=== PATIENT | female | born 1970 | race American Indian/Alaskan Native ===

== ENCOUNTER 2021-02-19 17:16 | Emergency (ER) | payer MEDICARE, MEDICAID, SELFPAY ==
[2021-02-19 17:35] VITALS: BP 119/70; PULSE 86; RESP 18; TEMP 36.6; O2SAT 97
[2021-02-19 20:32] LABS: Bacteria Urine Occasional (0-1); RBC Urine 0-1/HPF (0-5/HPF); Squamous Epithelial Cell Urine 0-1 /HPF (0-5/HPF); WBC Urine 10-30/HPF (0-5/HPF)
[2021-02-19 20:33] LABS: Culture Indicated Urine Specimen Cultured
--- NOTE | 2021-02-19 20:52 | ED.GENADULT ---
HPI - General Adult General Chief complaint: Fever Stated complaint: bladder infection Time Seen by Provider: 02/19/21 20:26 Source: patient Mode of arrival: Ambulatory Limitations: no limitations History of Present Illness HPI narrative: Patient is a 50-year-old female who is here for evaluation of which he thinks is a bladder infection. She has had dysuria and nausea and fevers and urinary frequency. States she has had a bladder infection in the past but that was many years ago. She also states that she has had a kidney infection in the past and also states she has had a infection in her pancreas in the past. She has not tried anything for her symptoms prior to arrival. Some nausea but no vomiting. Related Data Previous Rx's Medication Instructions Recorded cephalexin 500 mg PO BID 7 Days #14 cap 02/19/21 phenazopyridine [Pyridium] 100 mg PO TID PRN #6 tab 02/19/21 Allergies Allergy/AdvReac Type Severity Reaction Status Date / Time diphenhydramine Allergy Severe Anaphylaxis Verified 02/19/21 21:00 Review of Systems Constitutional Constitutional: Reports fatigue and Reports fever(s) Cardiovascular Cardiovascular: Reports system reviewed and no additional complaints, except as documented Respiratory Respiratory: Reports system reviewed and no additional complaints, except as documented Gastrointestinal Gastrointestinal: Reports abdominal pain (Lower abdomen over bladder) and Reports nausea Genitourinary Genitourinary: Reports dysuria, Reports urinary hesitancy and Reports urinary urgency Genitourinary: Reports dysuria, Reports urinary hesitancy and Reports urinary urgency Musculoskeletal Musculoskeletal: Denies back pain Integumentary/Breasts Skin/Breast: Reports system reviewed and no additional complaints, except as documented Neurologic Neurologic: Reports system reviewed and no additional complaints, except as documented Psychiatric Psychiatric: Reports system reviewed and no additional complaints, except as documented Endocrine Endocrine: Reports fatigue Patient History Medical History Healthy adolescent Social History lives independently: Yes Exam Initial Vital Signs Initial Vital Signs: Vital Signs Temperature 97.8 F 02/19/21 17:35 Pulse Rate 86 02/19/21 17:35 Respiratory Rate 18 02/19/21 17:35 Blood Pressure 119/70 02/19/21 17:35 Pulse Oximetry 97 06/14/21 17:35 Const General: cooperative and comfortable Limitations: mental status not altered HENID Head: normal to inspection and normocephalic Resp Effort & Inspection: normal respiratory effort Cardio Rate: regular rate GI Palpation: soft Back/Spine/Pelvis Back: No CVA tenderness Skin General: no rashes or lesions noted Neuro General: patient alert and patient awake Extrem General: normal to inspection Psych Appearance: grossly normal and well kempt Course Orders Ordered: ED Orders 02/19/21 20:16 Urine Culture Stat Urine Microscopic Stat Discontinued Medications Cephalexin HCl (Cephalexin 250 Mg Capsule) 500 mg PO NOW ONE Stop: 02/19/21 20:54 Last Admin: 02/19/21 20:57 Dose: 500 mg Documented by: [email or web address] Phenazopyridine HCl (Phenazopyridine 100 Mg Tablet) 100 mg PO NOW ONE Stop: 02/19/21 20:54 Last Admin: 02/19/21 20:57 Dose: 100 mg Documented by: ABE Vital Signs Vital signs: Vital Signs - 8 hr 02/19/21 21:05 Pulse Rate 80 Respiratory Rate 15 Blood Pressure 121/56 L Pulse Oximetry 99 Medical Decision Making Lab Data Lab results reviewed: Yes I reviewed the patient's lab results. Labs: Lab Results 02/19/21 Range/Units 20:16 Urine RBC 0-1/hpf (0-5/HPF) Urine WBC 10-30/hpf H (0-5/HPF) Ur Squamous Epith Cells 0-1 /hpf (0-5/HPF) Urine Bacteria Occasional (0-1) (None) Ur Culture Indicated? Specimen cultured Urine Dip Bedside Urine Glucose Negative Bedside Urine Bilirubin - Negative Bedside Urine Ketone - Negative Urine Specific [place] 1.010 Bedside Urine Occult Blood ++ Bedside Urine pH 6 Bedside Urine Protein - Negative Bedside Urine Urobilinogen - Negative Bedside Urine Nitrite - Negative Bedside Urine Leukocytes + 70 Esterase Point of care testing: Urine Dip Bedside Urine Glucose Negative Bedside Urine Bilirubin - Negative Bedside Urine Ketone - Negative Urine Specific [place] 1.010 Bedside Urine Occult Blood ++ Bedside Urine pH 6 Bedside Urine Protein - Negative Bedside Urine Urobilinogen - Negative Bedside Urine Nitrite - Negative Bedside Urine Leukocytes + 70 Esterase MDM Narrative Medical decision making narrative: History and physical urinalysis today is consistent with a urinary tract infection. I have low suspicion for pyelonephritis given her physical exam. Urine culture was pending at the time of her discharge and we will contact her for need to change any antibiotics however feel that we should start antibiotics today. She was given a 1st dose here in the emergency department and prescription was sent to the pharmacy of her choice for the remainder. Will also give peridium to control symptoms. She was given return precautions and follow-up instructions. She expressed understanding and agreement. Discharge Plan Departure Patient Disposition: Home Clinical Impression: Urinary tract infection Instructions: DI for Urinary Tract Infection (UTI) Activity Restrictions/Additional Instructions: A prescription for antibiotics is electronically transmitted to [facility]. Please take them as directed starting tomorrow. You can take Tylenol/ibuprofen for discomfort/fevers. Return to the emergency department for any new or worsening symptoms Prescriptions: New phenazopyridine [Pyridium] 100 mg tablet 100 mg PO TID PRN (Reason: pain) Qty: 6 RF: 0 cephalexin 500 mg capsule 500 mg PO BID 7 Days Qty: 14 RF: 0
[2021-02-19] MEDS: cephALEXin 250 MG CAPSULE 500 MG PO (20:57)
[2021-02-19] MEDS: PHENAZOPYRIDINE 100 MG TABLET PO (20:57)
[2021-02-19 21:05] VITALS: BP 121/56; PULSE 80; RESP 15; O2SAT 99
== END 2021-02-19 21:06 | disposition home or self-care (01) ==
PROVIDERS: Emergency Provider Emergency Medicine
DX: N39.0 Urinary tract infection, site not specified (principal); R11.0 Nausea; R50.9 Fever, unspecified
CPT/HCPCS: 81003; 81015; 87086; 99283

== ENCOUNTER 2021-02-23 10:05 | Emergency (ER) | payer MEDICARE, MEDICAID, SELFPAY ==
[2021-02-23] VITALS (9 sets, daily range): BP systolic 103–142; BP diastolic 58–85; PULSE 70–97; RESP 14–16; TEMP 36.8–38.3; O2SAT 96–100
--- NOTE | 2021-02-23 11:58 | DI.RAD.S_ITS ---
PROCEDURE: XR CHEST 1V INDICATIONS: fever TECHNIQUE: One view of the chest was acquired. COMPARISON: None. FINDINGS: Surgical changes and devices: None. Lungs and pleura: Scattered subsegmental atelectasis and/or scarring. No focal consolidation. No pleural effusions or pneumothorax. Mediastinum: Mediastinal contours appear normal. Heart size is normal. Bones and chest wall: No suspicious bony lesions. Overlying soft tissues appear unremarkable. IMPRESSION: Diffuse mild patchy opacity presumably scarring/atelectasis versus low-grade aspiration. It would be difficult to exclude early atypical/viral pneumonia in this setting. If there is persistent clinical diagnostic uncertainty, continued surveillance with short interval radiographic followup after treatment is recommended. Dictated by: Tyler Dunn M.D. on 02/23/2021 at 12:36 Approved by: Tyler Dunn M.D. on 02/23/2021 at 12:37
--- NOTE | 2021-02-23 11:58 | ED_ITS ---
HPI - Allergic Reaction General Chief complaint: Allergic Reaction Stated complaint: bladder-kidney infection/swelling eyes Time Seen by Provider: 02/23/21 11:37 Source: patient Mode of arrival: Ambulatory Limitations: no limitations History of Present Illness HPI narrative: 50-year-old woman with no significant medical history presents for the 2nd time. she was seen initially on February 19 with what she thought was a urinary tract infection with dysuria nausea fevers and frequency. Urine had some white blood cells and leukocyte esterase and he was diagnosed with a urinary tract infection with a low suspicion for pyelonephritis she was given cephalexin and peridium. She notes that the Peridium did help with the burning and urgency symptoms however the dysuria, vulvodynia, fevers, rigors have all worsened. urinalysis from February 19 has subsequently grown out nothing on culture. She has noted fevers to 103? that return as soon as her antipyretics wear off. She is complaining of significant myalgias, low-grade headache yesterday that actually has resolved today. She is now having increasing epig astric and left upper quadrant pain and feels like shit period. she describes no significant vaginal discharge, no new sexual partners, no vomiting but a moderate amount of nausea. This morning she woke with significant swelling around her eyes that has resolves after using some ice. No const ipation or diarrhea. She notes that the epigastric and left upper quadrant pain is a bit worse with deep breathing but does not specifically complain of dyspnea or cough. Related Data Previous Rx's Medication Instructions Recorded cephalexin 500 mg PO BID 7 Days #14 cap 02/19/21 phenazopyridine [Pyridium] 100 mg PO TID PRN #6 tab 02/19/21 ondansetron 4 mg PO Q8H PRN #14 tab 02/23/21 oxycodone-acetaminophen 1 tab PO Q6H PRN #10 tab 02/23/21 valacyclovir 1,000 mg PO BID #40 tab 02/23/21 Allergies Allergy/AdvReac Type Severity Reaction Status Date / Time diphenhydramine Allergy Severe Anaphylaxis Verified 02/23/21 10:24 Review of Systems Review of Systems Narrative: Remainder of complete review of systems is otherwise unremarkable except for that included in the HPI. Patient History Medical History (Updated 02/23/21 @ 13:45 by Vy Weston MD) Herpes Social History lives independently: Yes Smoking Status: Current every day smoker Smoking Status: Current every day smoker tobacco type: cigarettes alcohol intake frequency: 0-2 drinks per day Substance Use Type: marijuana Exam Narrative Exam Narrative: General: mild distress. Able to give a complete and coherent history. Well-nourished well-developed HEENT: Moist mucous membranes, normal sclera with reactive pupils, Neck: No JVD, supple Respiratory: Lungs are clear to auscultation, no wheezing no rales no rhonchi. Full and symmetrical air movement Cardiac: Regular rate and rhythm no murmurs no bruits Abdomen: Soft, nontender, good bowel tones, no flank pain Skin: Warm to the touch,and dry, no rashes Neurologic: Grossly neurologically intact with no obvious asymmetries or abnormalities Extremities: No trauma, well perfused genitalia: Significant edema to the inner and outer labia more on the left than the right with multiple partially healed fascicular lesions consistent with HSV. there is a lesion close to the urethral orifice that may explain the severity of the urinary symptoms that she is experiencing Psych: Cooperative, appropriate insight and affect Initial Vital Signs Initial Vital Signs: Vital Signs Temperature 98.2 F 02/23/21 10:20 Pulse Rate 90 02/23/21 10:20 Respiratory Rate 14 02/23/21 10:20 Blood Pressure 142/85 H 02/23/21 10:20 Pulse Oximetry 98 02/23/21 10:20 Course Orders Ordered: ED Orders 02/23/21 11:58 XR chest 1V Stat 02/23/21 12:10 Complete Blood Count AUTO DIFF Stat Comprehensive Metabolic Panel Stat Lactate (Lactic Acid) Stat Lipase Stat 02/23/21 12:35 Blood Culture Stat Discontinued Medications Acetaminophen (Acetaminophen 325 Mg Tablet) 975 mg PO NOW ONE Stop: 02/23/21 13:14 Last Admin: 02/23/21 13:18 Dose: 975 mg Documented by: Sodium Chloride (Normal Saline 0.9%) 1,000 mls @ 1,000 mls/hr IV BOLUS ONE Stop: 02/23/21 12:56 Last Admin: 02/23/21 12:18 Dose: 1,000 mls/hr Documented by: ROSA Ketorolac Tromethamine (Ketorolac 30 Mg/Ml Vial) 15 mg IV NOW ONE Stop: 02/23/21 11:58 Last Admin: 02/23/21 12:18 Dose: 15 mg Documented by: ROSA Ondansetron HCl (Ondansetron 4 Mg/2 Ml Inj) 4 mg IV NOW ONE Stop: 02/23/21 11:58 Last Admin: 02/23/21 12:19 Dose: 4 mg Documented by: ROSA Vital Signs Vital signs: Vital Signs - 8 hr 02/23/21 10:20 02/23/21 12:24 02/23/21 12:30 Temperature 98.2 F Pulse Rate 90 92 H 94 H Respiratory Rate 14 Blood Pressure 142/85 H 121/72 Pulse Oximetry 98 100 98 02/23/21 13:00 02/23/21 13:07 02/23/21 13:18 Temperature 101.0 F H 101.0 F H Pulse Rate 94 H 95 H Respiratory Rate Blood Pressure 103/58 L Pulse Oximetry 97 99 MDM - Allergic Reaction Medical Records Attestation: I reviewed the patient's medical records. Lab Data Attestation: I reviewed the patient's lab results. Result diagrams: 02/23/21 12:10 02/23/21 12:10 Labs: Lab Results 02/23/21 02/23/21 02/23/21 Range/Units 12:10 12:10 12:10 WBC 10.9 (4.5-11.0) X10^3/uL RBC 4.44 (4.0-5.2) X10^6/uL Hgb 13.2 (12.0-16.0) g/dL Hct 39.4 (36-46) % MCV 88.8 (80-100) fL MCH 29.8 (26-34) PG MCHC 33.6 (30-36) % RDW 13.9 (11.6-14.8) % Plt Count 217 (150-400) X10^3/uL Neut % (Auto) 72.4 (50-75) % Lymph % (Auto) 16.6 L (25-40) % [place] % (Auto) 8.8 (3-14) % Eos % (Auto) 1.8 L (2-4) % Baso % (Auto) 0.4 (0-2) % Neut # (Auto) 7900 H (3741-7831) /uL Lymph # (Auto) 1800 (9080-4706) /uL [place] # (Auto) 1000 H (0-900) /uL Eos # (Auto) 200 (0-450) /uL Baso # (Auto) 0 (0-100) /uL Sodium 139 (137-145) mmol/L Potassium 3.8 (3.4-5.1) mmol/L Chloride 104 (98-107) mmol/L Carbon Dioxide 28 (22-32) mmol/L BUN 10 (7-17) mg/dL Creatinine 0.53 (0.52-1.04) mg/dL Estimated GFR > 60.0 (>60) mL/min BUN/Creatinine Ratio 18.9 (6-22) Glucose 108 H (70-100) mg/dL Lactate 1.0 (0.7-2.1) mmol/L Calcium 9.1 (8.4-10.2) mg/dL Total Bilirubin 0.4 (0.2-1.3) mg/dL AST 34 (14-36) IU/L ALT 37 H (<35) IU/L Alkaline Phosphatase 174 H (38-126) U/L Total Protein 7.7 (6.3-8.2) g/dL Albumin 4.0 (3.5-5.0) g/dL Globulin 3.7 (1.7-4.1) g/dL Albumin/Globulin Ratio 1.1 (1.0-2.8) Lipase 48 (23-300) U/L Urine Dip Bedside Urine Glucose Negative Bedside Urine Bilirubin - Negative Bedside Urine Ketone - Negative Urine Specific [place] 1.010 Bedside Urine Occult Blood - Negative Bedside Urine pH 6.0 Bedside Urine Protein - Negative Bedside Urine Urobilinogen - Negative Bedside Urine Nitrite - Negative Bedside Urine Leukocytes - Negative Esterase MDM Narrative Medical decision making narrative: 50-year-old woman seen in [place] with uri nary symptoms treated is a UTI but significantly worse with high-grade fevers and increasing perineal pain as well as myalgias, fatigue in general malaise. She notes that her partner of 10 years does have genital herpes but they are always careful to use condoms and she herself has never had a herpes outbreak. Because symptoms continue and she is having fevers with the rigors additional workup is completed. No evidence of severe bacterial infection or sepsis. At this point I suspect that this is a primary herpes outbreak with significant viremia. All of the findings are reviewed with patient she started on valacyclovir. Asked her to follow-up with her primary care physician and at th is point she is safe for home discharge Discharge Plan Departure Patient Disposition: Home Clinical Impression: Herpes Instructions: DI for Genital Herpes Activity Restrictions/Additional Instructions: thank you for coming in today I am so sorry to let you know that your symptoms are very likely from a new herpes infection. You have a number of lesions that are healing nicely over your labia. Often times with the very 1st episode, you have all of the aches and fevers as the virus is working its way through your body. He there is no evidence of a bacterial infection in your bladder, lungs or kidneys. I am going to put you on a dose of antiviral medication, valacyclovir. Please complete a 10 day course with pills morning and evening. If at the end of 10 days you are still having symptoms, please finish a 2nd 10 day course. Please keep all of the remainder of the pills and If you feel a burning or tingling in your labia, that suggests that your having another outbreak and this sooner you begin the acyclovir the less symptoms you will have with the outbreak. Using 400 mg of ibuprofen (2 [id number] pills) and 1 Tylenol every 6 hours can be very helpful in controlling pain. 400 mg of ibuprofen and 1 Percocet can help with the severe pain. please do follow-up with your primary care physician to talk about prophylactic treatment if your having recurrent outbreaks. If you find that your developing new symptoms or have additional findings, please feel free to return to the ER Prescriptions: New valacyclovir 1 gram tablet 1,000 mg PO BID Qty: 40 RF: 0 oxycodone-acetaminophen 5-325 mg tablet 1 tab PO Q6H PRN (Reason: pain) Qty: 10 RF: 0 ondansetron 4 mg tablet,disintegrating 4 mg PO Q8H PRN (Reason: nausea and vomiting) Qty: 14 RF: 0 No Action phenazopyridine [Pyridium] 100 mg tablet 100 mg PO TID PRN (Reason: pain) Qty: 6 RF: 0 cephalexin 500 mg capsule 500 mg PO BID 7 Days Qty: 14 RF: 0
[2021-02-23] MEDS: SODIUM CHLORIDE 0.9% 1,000 ML 1000 ML IV (12:18)
[2021-02-23] MEDS: KETOROLAC 30 MG/ML VIAL 15 MG IV (12:18)
[2021-02-23 12:19] LABS: Add Manual Diff / Slide Review NO; Basophils Absolute Auto 0 /uL (0-100); Basophils Percent Auto 0.4 % (0-2); Eosinophils Absolute Auto 200 /uL (0-450); Eosinophils Percent Auto 1.8 % (2-4); Hematocrit 39.4 % (36-46); Hemoglobin 13.2 g/dL (12.0-16.0); Lymphocytes Absolute Auto 1800 /uL (1100-4500); Lymphocytes Percent Auto 16.6 % (25-40); Mean Corpuscular HGB Conc 33.6 % (30-36); Mean Corpuscular Hemoglobin 29.8 PG (26-34); Mean Corpuscular Volume 88.8 fL (80-100); Monocytes Absolute Auto 1000 /uL (0-900); Monocytes Percent Auto 8.8 % (3-14); Neutrophils Absolute Auto 7900 /uL (1500-7000); Neutrophils Percent Auto 72.4 % (50-75); Platelet Count 217 X10^3/uL (150-400); Red Blood Cell Count 4.44 X10^6/uL (4.0-5.2); Red Cell Distribution Width 13.9 % (11.6-14.8); White Blood Cell Count 10.9 X10^3/uL (4.5-11.0)
[2021-02-23] MEDS: ONDANSETRON 4 MG/2 ML INJ IV (12:19)
[2021-02-23 12:33] LABS: Alanine Aminotransferase 37 IU/L (<35); Albumin Globulin Ratio 1.1 (1.0-2.8); Alkaline Phosphatase 174 U/L (38-126); Aspartate Aminotransferase 34 IU/L (14-36); BUN Creatinine Ratio 18.9 (6-22); Bilirubin Total 0.4 mg/dL (0.2-1.3); Blood Urea Nitrogen 10 mg/dL (7-17); Calcium 9.1 mg/dL (8.4-10.2); Carbon Dioxide 28 mmol/L (22-32); Chloride 104 mmol/L (98-107); Estimated Glomerular Filt Rate > 60.0 mL/min (>60); Globulin 3.7 g/dL (1.7-4.1); Glucose 108 mg/dL (70-100); HEMOLYSIS < 15 (0-50); Lipase 48 U/L (23-300); Potassium 3.8 mmol/L (3.4-5.1); Sodium 139 mmol/L (137-145); Total Protein 7.7 g/dL (6.3-8.2)
[2021-02-23] MEDS: ACETAMINOPHEN 325 MG TABLET 975 MG PO (13:18)
== END 2021-02-23 13:56 | disposition home or self-care (01) ==
PROVIDERS: Emergency Provider Emergency Medicine
DX: B00.9 Herpesviral infection, unspecified (principal); R10.13 Epigastric pain; R10.12 Left upper quadrant pain; R50.9 Fever, unspecified
CPT/HCPCS: 36415; 71045; 80053; 81003; 83605; 83690; 85025; 87040; 96361; 96374; 96375; 99284; J1885; J2405